=== PATIENT | male | born 1990 | race Caucasian/White ===

== ENCOUNTER 2017-10-24 06:33 | Day surgery (SDC) | payer BC ==
[2017-10-23 13:00] LABS: Absolute Lymphocytes (CBC) 2.2 K/uL (0.7-4.9); Absolute Monocytes 0.5 K/uL (0.1-1.3); Absolute Neutrophil 3.6 K/uL (1.8-8.0); Basophils % 0.8 % (0-1.3); Eosinophils % 9.3 % (0-4.4); Hematocrit 46.9 % (39.6-49.0); Lymphocytes % 32.2 % (15.3-44.8); MCH 29.8 pg (27.0-35.0); MCV 88.7 fL (80-100); MPV 8.6 fL (7.6-11.3); Monocytes % 6.9 % (3.3-12.3); RBC Red Blood Cell Count 5.29 M/uL (4.33-5.43)
[2017-10-23 13:10] LABS: BUN Blood Urea Nitrogen 11 mg/dL (6-20); Bicarbonate 28 mEq/L (21-31); Glucose Level 87 mg/dL (65-120); Potassium 3.8 mEq/L (3.6-5.0); Sodium Level 137 mEq/L (135-145)
[2017-10-24] MEDS ORDERED: Ringers Lactate 1,000 ML IV ONE (06:46)
[2017-10-24] MEDS ORDERED: CEFAZOLIN/SWI 1gm 1 GM/10 ML SYR ONE (06:46)
[2017-10-24] MEDS ORDERED: PROPOFOL 200 MG/20 ML VIAL IV ONE (07:23)
[2017-10-24] MEDS ORDERED: FENTANYL CITR 100 MCG/2 ML ONE (07:24)
[2017-10-24] MEDS ORDERED: MIDAZOLAM HCL 2 MG/2 ML INJ ONE (07:24)
[2017-10-24] MEDS ORDERED: ONDANSETRON HCL 40 MG/20 ML VIAL ONE (07:25)
--- NOTE | 2017-10-24 08:06 | P.BOP ---
Preoperative diagnosis: right 5th metacarpal fracture Postoperative diagnosis: same Primary procedure: right 5th metacarpal crpp Estimated blood loss: <3ccs Anesthesia: General Complications: None Transferred to: Recovery Room Condition: Good
[2017-10-24] MEDS: MEPERIDINE HCL 50 MG/ML AMP ONE ×2 (08:35→08:40)
[2017-10-24] MEDS ORDERED: MEPERIDINE HCL 25 MG/0.5 ML ONE (08:48)
[2017-10-24] MEDS ORDERED: CODEINE 30MG/APAP 300MG TAB ONE (09:20)
--- NOTE | 2017-10-24 15:40 | RAD REPORT ---
EXAM DESCRIPTION: RAD - Hand Right 2 View - 10/24/2017 3:10 pm CLINICAL HISTORY: Fifth metacarpal fracture FINDINGS: Intraoperative fluoroscopic spot images are submitted for thickening of a fifth metacarpal fracture On the lateral view the location of the pin with respect to the fracture of the fifth metacarpal is n ot well seen
--- NOTE | 2017-10-24 19:06 | OP ---
Date of Procedure: 10/24/2017 Surgeon: Mendez Steven MD Preoperative Diagnosis: Right fifth metacarpal distal shaft fracture, which was comminuted and displ aced. Postoperative Diagnosis: Right fifth metacarpal distal shaft fracture, which was comminuted and disp laced. Procedure: Closed reduction and percutaneous pin fixation of fifth metacarpal fracture. Estimated Blood Loss: Less than 3 cc. Complications: There were no complications. Specimens: No pathology specimens sent. Indications For Operation: Mr. Feliciano is a 26-year-old male, who was unfortunately working on a [employer] and had an accident with his hand. He was seen in the emergency department and was ruled out for o ther injuries; however, x-rays demonstrated a comminuted fifth metacarpal fracture. On seeing him in the office, he was taken out of his splint. He does have an area of his hand where the splint appea red to be pressing quite a bit and still has a little bit red; however, also on examination, he had a swollen hand with extensive bruising, also had some rotational deformity of his fifth finger pointin g more toward the radius, flexion also exhibited approximately 20 degree extensor lag. X-rays demons trated a comminuted displaced fifth metacarpal fracture. All risks, benefits, and alternatives have been discussed with the patient. He states he understands things as presented and wished to proceed. Description Of Procedure: The patient was taken to the operating room and placed in supine position. General anesthesia was obtained by staff. Following this, right hand was then prepped and draped i n the usual sterile fashion. The C-arm was brought in and the finger was reduced. It was found to b e completely unstable. Consideration was made for placing two 3.5 pins in the lateral recesses; harris teressa, comminution in this area made this technique less applicable. Therefore, decision made to pin t his actually with the finger being held in the position of reduction. One actual 4.5 pin was then pl aced across the fracture site holding the fracture back into extension. After the pin was placed, th e fingers moved and does not appear to have any further rotational deformity. The pin was then dress ed with Adaptic and 4x4s. The patient was placed in a well-padded sterile dressing as well as an uln ar gutter splint in a position of PIP and DIP extension and MP flexion. He was then awakened and jessica en to recovery room in good condition. There were no complications. /MODMary Alice Voice ID: [id number] Report ID: [id number]
== END 2017-10-24 09:53 | disposition home or self-care (01) ==
LOC: OR 06:33
PROVIDERS: ATTEND Orthopaedic Surgery
PROC: 0PSP34Z Reposition Right Metacarpal with Internal Fixation Device, Percutaneous Approach (ICD-10-PCS; principal; 2017-10-24 07:30)
DX: S62.326A Displaced fracture of shaft of fifth metacarpal bone, right hand, initial encounter for closed fracture (principal)
CPT/HCPCS: 36415; 80048; 85025; J0690; J2175; J2250; J2405; J3010

== ENCOUNTER 2021-10-28 20:17 | Emergency (ER) | payer SELFPAY ==
--- OUTSIDE RECORDS SUMMARY | 2021-10-28 20:20 | XMS REPORT | Continuity of Care Document ---
:1990 Author Organization [facility] t Address [facility] [place] [address] Care Team Providers Name Role Phone SENTHIL Attending Clinician Unavailable Problems This patient has no known problems. Allergies, Adverse Reactions, Alerts Allergy Allergy Status Severity Reaction(s) Onset Inactive Treating Comm ents Source Name Type Date Date Clinician NO KNOWN Drug Active [facility] ALLERGIE Class [facility] Medications This patient has no known medications. Procedures This patient has no known procedures. Encounters Start End Encounter Admission Attending Care Care Encounter Source Date/Time Date/Time Type Type Clinicians Facility Department ID 2021-01-10 2021-01-10 Outpatient Hannah NDIAYE [facility] [id number] [facility] 14:45:00 14:45:00 [facility] Results This patient has no known results.
[2021-10-28] MEDS ORDERED: LIDOCAINE VISCOUS 2% SOLN 15 ML UDC ONE (21:16)
[2021-10-28] MEDS ORDERED: DIPHENHYDRAMINE 50 MG/ML VIAL ONE (21:16)
[2021-10-28] MEDS ORDERED: METOCLOPRAMIDE 10 MG/2mL INJ ONE (21:16)
[2021-10-28] MEDS ORDERED: MAGNES/ALUMIN/SIMET 30ML UCUP ONE (21:16)
[2021-10-28 21:34] LABS: Hematocrit 41.9 % (39.6-49.0); Lymphocytes % 12.4 % (15.3-44.8); MPV 7.9 fL (7.6-11.3); RBC Red Blood Cell Count 4.83 M/uL (4.33-5.43)
[2021-10-28 21:51] LABS: Albumin 3.8 g/dL (3.4-5.0); Bilirubin Total 0.5 mg/dL (0.2-1.0); Potassium 3.6 mmol/L (3.5-5.1); Protein, Total 6.9 g/dL (6.4-8.2)
--- NOTE | 2021-10-28 22:36 | EDPHYS ---
Physician Documentation [facility] Name: Isidro Feliciano Age: 31 yrs Sex: Male : 1990 Arrival Date: 10/28/2021 Time: 20:29 Bed 19 Private MD: ED Physician Ray Miranda HPI: 10/28 20:48 This 31 yrs old Male presents to ER via EMS with complaints of foreign body sensation ms3 in throat. 20:48 The patient presents with a foreign body sensation in the throat. The patient describes ms3 throat pain as constant. Onset: The symptoms/episode began/occurred acutely, just prior to arrival. Severity of symptoms: At their worst the symptoms were moderate. Modifying factors: The symptoms are alleviated by nothing, the symptoms are aggravated by nothing. Associated signs and symptoms: The patient has no apparent associated signs or symptoms. Per EMS and patient's mother patient has history of gastric emptying problem.. Historical: - Allergies: 20:35 No Known Allergies; jb4 - Home Meds: 20:35 None [Active]; jb4 - PMHx: 20:35 Asthma; Esophogeal stricture; jb4 - PSHx: 20:35 None; jb4 - Immunization history:: Adult Immunizations up to date. - Social history:: Smoking status: unknown. ROS: 20:48 Constitutional: Negative for fever, and chills. Neck: Negative for injury, pain, and ms3 swelling, Cardiovascular: Negative for chest pain, and palpitations. Respiratory: Negative for shortness of breath, cough, wheezing, and pleuritic chest pain, Back: Negative for injury and pain, MS/Extremity: Negative for injury and deformity, Skin: Negative for injury, rash, and discoloration, Psych: Negative for depression, anxiety, suicide ideation, homicidal ideation, and hallucinations. 20:48 Abdomen/GI: Positive for abdominal pain, nausea and vomiting. 20:48 All other systems are negative. Exam: 20:48 Constitutional: This is a well developed, well nourished patient who is awake, alert, ms3 and in no acute distress. Eyes: Pupils equal round and reactive to light, extra-ocular motions intact. Lids and lashes normal. Conjunctiva and sclera are non-icteric and not injected. Periorbital areas with no swelling, redness, or edema. Neck: Trachea midline, no cervical lymphadenopathy. Supple, full range of motion without nuchal rigidity, or vertebral point tenderness. No Meningismus. Chest/axilla: Normal chest wall appearance and motion. Nontender with no deformity. Cardiovascular: Regular rate and rhythm with a normal S1 and S2. No gallops, murmurs, or rubs. Normal PMI, no JVD. No pulse deficits. Respiratory: Lungs have equal breath sounds bilaterally, clear to auscultation and percussion. No rales, rhonchi or wheezes noted. No increased work of breathing, no retractions or nasal flaring. Abdomen/GI: Soft, non-tender, with normal bowel sounds. No distension or tympany. No guarding or rebound. No evidence of tenderness throughout. Skin: Warm, dry with normal turgor. Normal color with no rashes, no lesions, and no evidence of cellulitis. Psych: Awake, alert, with orientation to person, place and time. Behavior, mood, and affect are within normal limits. Vital Signs: 20:31 BP 103 / 50; Pulse 115; Resp 24; Temp 99.7(TE); Pulse Ox 97% on R/A; Weight 95.25 kg jb4 (R); Height 5 ft. 6 in. (167.64 cm); Pain 8/10; 21:15 BP 116 / 67; Pulse 94; Resp 16; Pulse Ox 100% on R/A; jb4 22:00 BP 105 / 59; Pulse 73; Resp 16; Pulse Ox 100% on R/A; jb4 20:31 Body Mass Index 33.89 (95.25 kg, 167.64 cm) jb4 MDM: 20:37 Patient medically screened. ms3 20:48 Differential diagnosis: gastroesophageal reflux disease, Gastroparesis. ms3 22:37 Data reviewed: vital signs, nurses notes, lab test result(s), and as a result, I will ms3 discharge patient. Counseling: I had a detailed discussion with the patient and/or guardian regarding: the historical points, exam findings, and any diagnostic results supporting the discharge/admit diagnosis, lab results, the need for outpatient follow up, to return to the emergency department if symptoms worsen or persist or if there are any questions or concerns that arise at home. ED course: Discussed labs, physical exam findings with patient. Patient to follow-up with Gastroenterology in 2 to 3 days. Patient understands and agrees with plan. All questions were answered. Return precautions discussed include worsening symptoms, or any other concerns. On reevaluation patient is alert and oriented x4, in no apparent distress, nontoxic-appearing, speaking full sentences, ambulatory in emergency department.. 10/28 20:40 Order name: CBC with Diff; Complete Time: 22:07 ms3 10/28 20:40 Order name: CMP; Complete Time: 22: ms3 10/28 20:40 Order name: Lipase; Complete Time: 22: ms3 10/28 20:40 Order name: IV Saline Lock; Complete Time: 20:54 ms3 10/28 20:40 Order name: Labs collected and sent; Complete Time: 21:26 ms3 Administered Medications: 21:20 Drug: GI Cocktail without - (Maalox Suspension 30 ml, Lidocaine Liquid 2 % 15 ph ml) Route: PO; 22:00 Follow up: Response: No adverse reaction jb4 21:24 Drug: Benadryl (diphenhydrAMINE) 12.5 mg Route: IVP; Site: right hand; ph 22:00 Follow up: Response: No adverse reaction; Marked relief of symptoms jb4 21:26 Drug: Reglan (metoCLOPramide) 10 mg Route: IVP; Site: right hand; ph 22:00 Follow up: Response: No adverse reaction; Marked relief of symptoms jb4 Disposition Summary: 10/28/21 22:35 Discharge Ordered Location: Home ms3 Condition: Stable ms3 Diagnosis - Pain in throat ms3 Followup: ms3 - With: Nick Medel MD - When: 2 - 3 days - Reason: Re-evaluation by your physician Discharge Instructions: - Discharge Summary Sheet ms3 - Sore Throat, [id number] ms3 Forms: - Medication Reconciliation Form ms3 - Thank You Letter ms3 - Antibiotic Education ms3 - Prescription Opioid Use ms3 Signatures: Dispatcher [employer] Briseyda Winter RN RN Narendra Castaneda RN RN jb4 Ray Miranda DO DO ms3
--- NOTE | 2021-10-28 22:36 | ER ---
Nurse's Notes [facility] Name: Isidro Feliciano Age: 31 yrs Sex: Male : 1990 Arrival Date: 10/28/2021 Time: 20:29 Bed 19 Private MD: Diagnosis: Pain in throat Presentation: 10/28 20:31 Chief complaint: Patient states: We were called for what sounded like asphyxiation, he jb4 has problems swallowing. He says this has happened 4 other times. It happened after eating food and he said he felt like he couldn't swallow. Coronavirus screen: At this time, the client does not indicate any symptoms associated with coronavirus-19. Ebola Screen: No symptoms or risks identified at this time. Initial Sepsis Screen: Does the patient meet any 2 criteria? HR > 90 bpm. Yes Does the patient have a suspected source of infection? No. Patient's initial sepsis screen is negative. Risk Assessment: Do you want to hurt yourself or someone else?. Onset of symptoms was October 28, 2021. Transition of care: patient was not received from another setting of care. 20:31 Method Of Arrival: EMS: No [facility] jb4 20:31 Acuity: LYNSEY 3 jb4 Historical: - Allergies: 20:35 No Known Allergies; jb4 - Home Meds: 20:35 None [Active]; jb4 - PMHx: 20:35 Asthma; Esophogeal stricture; jb4 - PSHx: 20:35 None; jb4 - Immunization history:: Adult Immunizations up to date. - Social history:: Smoking status: unknown. Screenin:30 Abuse screen: Denies threats or abuse. Nutritional screening: No deficits noted. jb4 Tuberculosis screening: No symptoms or risk factors identified. Fall Risk None identified. Assessment: 20:30 General: Appears in no apparent distress. uncomfortable, Behavior is calm, cooperative, jb4 appropriate for age. Pain: Complains of pain in chest Pain does not radiate. Pain currently is 8 out of 10 on a pain scale. Quality of pain is described as squeezing. Neuro: Level of Consciousness is awake, alert, obeys commands, Oriented to person, place, time, situation. Cardiovascular: Patient's skin is warm and dry. Respiratory: Airway is patent Respiratory effort is even, unlabored, Respiratory pattern is regular, symmetrical. GI: No signs and/or symptoms were reported involving the gastrointestinal system. : No signs and/or symptoms were reported regarding the genitourinary system. EENT: No signs and/or symptoms were reported regarding the EENT system. Derm: Skin is intact, Skin is pink, warm \T\ dry. 22:00 Reassessment: Patient appears in no apparent distress at this time. Patient and/or jb4 family updated on plan of care and expected duration. Pain level reassessed. Patient is alert, oriented x 3, equal unlabored respirations, skin warm/dry/pink. Patient states feeling better. Patient states symptoms have improved. 22:59 Reassessment: Patient appears in no apparent distress at this time. Patient and/or jb4 family updated on plan of care and expected duration. Pain level reassessed. Patient is alert, oriented x 3, equal unlabored respirations, skin warm/dry/pink. Vital Signs: 20:31 BP 103 / 50; Pulse 115; Resp 24; Temp 99.7(TE); Pulse Ox 97% on R/A; Weight 95.25 kg jb4 (R); Height 5 ft. 6 in. (167.64 cm); Pain 8/10; 21:15 BP 116 / 67; Pulse 94; Resp 16; Pulse Ox 100% on R/A; jb4 22:00 BP 105 / 59; Pulse 73; Resp 16; Pulse Ox 100% on R/A; jb4 20:31 Body Mass Index 33.89 (95.25 kg, 167.64 cm) jb4 ED Course: 20:29 Patient arrived in ED. jb4 20:30 Patient has correct armband on for positive identification. Bed in low position. Call [facility] light in reach. Side rails up X 1. Client placed on continuous cardiac and pulse oximetry monitoring. NIBP monitoring applied. 20:31 Abdirizak Mendoza PA is PHCP. [facility] 20:31 Ray Miranda DO is Attending Physician. [facility] 20:31 Narendra Cruz, HUBER is Primary Nurse. jb4 20:35 Triage completed. jb4 20:35 Arm band placed on right wrist. jb4 22:34 Nick Medel MD is Referral Physician. ms3 23:00 No provider procedures requiring assistance completed. IV discontinued, intact, jb4 bleeding controlled, No redness/swelling at site. Pressure dressing applied. Administered Medications: 21:20 Drug: GI Cocktail without - (Maalox Suspension 30 ml, Lidocaine Liquid 2 % 15 ph ml) Route: PO; 22:00 Follow up: Response: No adverse reaction jb4 21:24 Drug: Benadryl (diphenhydrAMINE) 12.5 mg Route: IVP; Site: right hand; ph 22:00 Follow up: Response: No adverse reaction; Marked relief of symptoms jb4 21:26 Drug: Reglan (metoCLOPramide) 10 mg Route: IVP; Site: right hand; ph 22:00 Follow up: Response: No adverse reaction; Marked relief of symptoms jb4 Medication: 22:00 VIS not applicable for this client. jb4 Outcome: 22:35 Discharge ordered by . ms3 23:00 Discharged to home ambulatory, with family. jb4 23:00 Condition: stable 23:00 Discharge instructions given to patient, Instructed on discharge instructions, follow up and referral plans. Demonstrated understanding of instructions, follow-up care. 23:00 Patient left the ED. jb4 Signatures: Abdirizak Mendoza PA PA jmm Hall, Patricia RN RN Narendra Castaneda RN RN jb4 Ray Miranda DO DO ms3
[2021-10-28 23:12] VITALS: TEMP 99.7
[2021-10-28 23:14] VITALS: O2SAT 100
[2021-10-28 23:15] VITALS: BP 105/59
== END 2021-10-28 23:00 | disposition home or self-care (01) ==
LOC: ER 20:17
DX: R07.0 Pain in throat (principal); J45.909 Unspecified asthma, uncomplicated; K22.2 Esophageal obstruction
CPT/HCPCS: 36415; 80053; 83690; 85025; 96374; 96375; 99283; J1200; J2765